=== PATIENT | female | born 1990 | race American Indian/Alaskan Native ===

== ENCOUNTER 2018-09-28 20:36 | Outpatient (CLI) | payer MEDICAID ==
[2018-09-28 21:28] VITALS: BP 102/56
--- NOTE | 2018-09-28 22:44 | Ultrasound Report ---
PROCEDURE: US OB FOLLOW UP, US OB BPP WO NON-STRESS TECHNIQUE: Obstetrical sonographic imaging was performed HISTORY: decrease movement COMPARISONS: 02/11/2018 FINDINGS: Images demonstrate single live intrauterine gestation in cephalic presentation. Anterior placenta gra de 1. No previa. heart rate measures 143 bpm. Calculated ALIYA 12.1 cm. estimated gestational age as follows: Biparietal diameter is 38 weeks 0 days Head circumference 38 weeks 4 days Abdominal circumference 38 weeks 1 day Femur length 30 weeks 2 days Average sonographic gestational age is 38 weeks 2 days with estimated due date of 10/10/2018. HC/AC 0.9 Cephalic index 79.9 Estimated weight 3442 g. 2 points were awarded for movement, tone, ALIYA, breathing movements, and calculated ALIYA 4 8/8 biophysical profile. IMPRESSION: Biophysical profile score 8/8. Single live intrauterine gestation at 38 weeks 2 days with estimated due date 10/10/2018. Calculated ALIYA 12.1 cm. heart rate measures 143 bpm. Cephalic presentation. Anterior grade 1 placenta without previa. Estimated weight 3442 g.. This document is electronically signed by Celestina Chowdhury MD., Sep 28 2018 10:42:22 PM ET
--- NOTE | 2018-09-29 02:05 | Ultrasound Report ---
PROCEDURE: US OB VELOCIMETRY UMBILCAL ART HISTORY: decels in fhr FINDINGS: Doppler ultrasound of the umbilical cords was performed. S/D ratio was 2.14 which is within normal limits for gestational age of approximately 38 weeks.. Resistive index was 0.53 which is also within normal limits for gestational age. IMPRESSION: Unremarkable cord Doppler ultrasound This document is electronically signed by Toby Valenzuela MD., Sep 29 2018 02:03:13 AM ET
== END 2018-09-29 02:15 | disposition home or self-care (01) ==
LOC: TRG 20:36
PROVIDERS: ATTEND Obstetrics & Gynecology
DX: O47.03 False labor before 37 completed weeks of gestation, third trimester (principal); Z3A.37 37 weeks gestation of pregnancy
CPT/HCPCS: 59025; 76816; 76819; 76820

== ENCOUNTER 2018-10-04 03:43 | Inpatient (IN) | payer MEDICAID ==
[2018-10-04] MEDS ORDERED: XYLOCAINE 2% INFILTRATI ONE (07:03)
[2018-10-04] MEDS ORDERED: BRETHINE IVP PRN (07:03)
[2018-10-04] MEDS ORDERED: BRETHINE SUB-Q PRN (07:03)
[2018-10-04] MEDS: SUBLIMAZE IV PRN ×4 (07:52→22:16)
[2018-10-04] MEDS: LACTATED RINGERS 1,000 ML IV SCH ×4 (07:57→23:37)
[2018-10-04] MEDS ORDERED: PITOCin/NS 20 UNIT/1000ML DRIP 20 UNITS/1,000 ML BAG IV SCH (08:00)
[2018-10-04] MEDS ORDERED: PITOCin/NS 30 UNIT/500ML 30 UNITS/500 ML BAG IV SCH ×2 (08:00)
[2018-10-04 08:06] LABS: Hematocrit 31.4 % (30.3-42.9); Hemoglobin 10.7 gm/dl (10.1-14.3); Mean Corpuscular HGB Conc 34 % (30-34); Mean Corpuscular Volume 86 fl (79-97); Platelet Count 251 K/mm3 (140-440); Red Blood Count 3.66 M/mm3 (3.65-5.03); Red Cell Distribution Width 14.8 % (13.2-15.2)
[2018-10-04] MEDS ORDERED: ZOFRAN IV PRN (13:30)
--- NOTE | 2018-10-04 20:34 | History and Physical Report ---
History of Present Illness Date of examination: 10/04/18 Date of admission: 10/04/18 09:34 Chief complaint: contractions History of present illness: This is a 28 yo at 39+3 weeks here for contractions. Initially noted to be 1cm commenced to walking and changed cervix to 3cm and ruddy q3min. Past History Past Medical History: no pertinent history Past Surgical History: no surgical history [employer] History: trichomonas Family/Genetic History: none Social history: no significant social history, single. denies: smoking, alcohol abuse, prescription drug abuse - Obstetrical History Expected Date of Delivery: 10/22/18 Actual Gestation: 37 Week(s) 3 Day(s) : 3 Para: 2 Hx # Term Pregnancies: 2 Number of Pregnancies: 0 Spontaneous Abortions: 0 Induced : 0 Number of Living Children: 2 Medications and Allergies Allergies Allergy/AdvReac Type Severity Reaction Status Date / Time No Known Allergies Allergy Verified 10/04/18 04:07 Home Medications Medication Instructions Recorded Confirmed Last Taken Type No Known Home Medications [No 10/04/18 10/04/18 Unknown History Reported Home Medications] Active Meds: Active Medications Ephedrine Sulfate (Ephedrine Sulfate) 10 mg IV Q2M PRN PRN Reason: Hypotension Fentanyl (Sublimaze) 100 mcg IV Q2H PRN PRN Reason: Labor Pain Last Admin: 10/04/18 15:14 Dose: 100 mcg Documented by: Oxytocin/Sodium Chloride (Pitocin/Ns 20 Unit/1000ml Drip) 20 units in 1,000 mls @ 125 mls/hr IV DIRECT TANVI Oxytocin/Sodium Chloride (Pitocin/Ns 30 Unit/500ml) 30 units in 500 mls @ 1 mls/hr IV TITR TANVI; Protocol Last Titration: 10/04/18 14:51 Dose: 14 milliunits/min, 14 mls/hr Documented by: Oxytocin/Sodium Chloride (Pitocin/Ns 30 Unit/500ml) 30 units in 500 mls @ 2 mls/hr IV TITR TANVI; Protocol Lactated Ringer's (Lactated Ringers) 1,000 mls @ 125 mls/hr IV DIRECT TANVI Last Admin: 10/04/18 13:40 Dose: 125 mls/hr Documented by: Mineral Oil (Mineral Oil) 30 ml PO QHS PRN PRN Reason: Constipation Ondansetron HCl (Zofran) 4 mg IV Q4H PRN PRN Reason: Nausea And Vomiting Last Admin: 10/04/18 15:15 Dose: 4 mg Documented by: Terbutaline Sulfate (Brethine) 0.25 mg SUB-Q ONCE PRN PRN Reason: Hyperstimulation/Hypertonicity Terbutaline Sulfate (Brethine) 0.25 mg IVP ONCE PRN PRN Reason: Hyperstimulation/Hypertonicity Review of Systems All systems: negative Genitourinary: leakage of fluid, contractions - Vital Signs Vital signs: Vital Signs Pulse BP 109 H 101/53 10/04/18 03:59 10/04/18 03:59 Temp Pulse Resp BP Pulse Ox 98.4 F 82 20 114/54 98 10/04/18 16:48 10/04/18 20:26 10/04/18 16:48 10/04/18 20:15 10/04/18 20:26 - Physical Exam Breasts: Positive: normal Cardiovascular: Regular rate, Normal S1 Lungs: Positive: Clear to auscultation, Normal air movement Abdomen: Positive: normal appearance, soft, normal bowel sounds. Negative: distention, tenderness, guarding Genitourinary (Female): Positive: normal external genitalia, normal perenium Vagina: Positive: normal moisture Uterus: Positive: normal size, normal contour Anus/Rectum: Positive: normal perianal skin, heme negative Extremities: Positive: normal Deep Tendon Reflex Grade: Normal +2 - Obstetrical FHR: category 1 Cervical Dilatation: 3 Cervical Effacement Percentage: 50 station: -3 Uterine Contraction Pattern: Regular Uterine Tone Measurement Phase: Contraction Uterine Contraction Intensity: Moderate Results Result Diagrams: 10/04/18 07:35 All other labs normal. Assessment and Plan A/P IUP 37+3 weeks GBS neg Latent labor with prom ( patient reported leaking while walking) IVF, labs continuos monitor Pitocin for augmentation expect vaginal delivery
[2018-10-04] MEDS ORDERED: MINERAL OIL PO PRN (22:00)
[2018-10-04] MEDS ORDERED: MARCAINE 0.25% INFILTRATI ONE (22:39)
[2018-10-04] MEDS ORDERED: NARCAN 2 MG/2 ML IV PRN (22:59)
--- NOTE | 2018-10-04 22:59 | Anesthesia Consultation ---
Anesthesia Consult and Med Hx Date of service: 10/04/18 - Airway Anesthetic Teeth Evaluation: Good ROM Head & Neck: Adequate Mental/Hyoid Distance: Adequate Mallampati Class: Class II Intubation Access Assessment: Good - Pulmonary Exam CTA: Yes - Cardiac Exam Cardiac Exam: RRR - Pre-Operative Health Status ASA Pre-Surgery Classification: ASA2 Proposed Anesthetic Plan: Epidural - Pulmonary Hx Asthma: No COPD: No Hx Pneumonia: No - Cardiovascular System Hx Hypertension: No - Central Nervous System Hx Seizures: Yes (migraines this ) Hx Psychiatric Problems: No - Endocrine Hx Renal Disease: No Hx End Stage Renal Disease: No Hx Hypothyroidism: No Hx Hyperthyroidism: No - Hematic Hx Anemia: No Hx Sickle Cell Disease: No - Other Systems Hx Alcohol Use: No
[2018-10-04] MEDS ORDERED: fentaNYL-BUPIV 2 MCG/ML-0.125% 200 MCG/100 ML BAG EPIDURAL SCH (23:00)
--- NOTE | 2018-10-05 04:05 | Procedure Note ---
OB Delivery Note - Delivery Date of Delivery: 10/05/18 Surgeon: DUSTIN CACERES Estimated blood loss: other (400cc) - Vaginal Delivery presentation: vertex Delivery position: OA Delivery induction: none Delivery augmentation: pitocin Delivery monitor: external FHT, external uterine Route of delivery: Delivery placenta: spontaneous Delivery cord: 3 umbilical vessels Episiotomy: none Delivery laceration: none Anesthesia: none Delivery comments: Patient was noted to be c/c/+1 commenced to pushing a pushed a viable male at 337a. The head was delivered and suction naso and oropharynx. The shoulders delivered easily. The cord was clamped and cut and placed baby on chest. The placenta delivered at 344a intact with 3 vessel cord. EBL 400 cc. Excellent hemostasis noted. Apgars 8 and 9. Weight 8 pounds 2.5oz - Infant A at 1 minute: 8 at 5 minutes: 9 Infant Gender: Male
[2018-10-05] MEDS ORDERED: IBUPROFEN PO PRN (07:30)
[2018-10-05] MEDS ORDERED: BENADRYL PO PRN (07:53)
[2018-10-05] MEDS ORDERED: MILK OF MAGNESIA PO PRN (07:53)
[2018-10-05] MEDS ORDERED: ZOFRAN IV PRN (07:53)
[2018-10-05] MEDS ORDERED: TUCKS PAD TP PRN (07:53)
[2018-10-05] MEDS ORDERED: LANSINOH TP PRN (07:53)
[2018-10-05] MEDS ORDERED: PHENERGAN PR PRN (07:53)
[2018-10-05] MEDS ORDERED: TYLENOL PO PRN (07:53)
[2018-10-05] MEDS ORDERED: PHENERGAN PO PRN (07:53)
[2018-10-05] MEDS ORDERED: DULCOLAX PR PRN (07:53)
[2018-10-05] MEDS: IBUPROFEN PO SCH ×3 (08:00→19:55)
[2018-10-05] MEDS ORDERED: SODIUM CHLORIDE FLUSH SYRINGE 10 ML IV NR (08:00)
[2018-10-05] MEDS: PERCOCET 5/325 PO PRN ×4 (08:17→23:52)
[2018-10-05 18:22] LABS: Hematocrit 28.4 % (30.3-42.9); Hemoglobin 9.3 gm/dl (10.1-14.3)
[2018-10-06] MEDS: IBUPROFEN PO SCH ×3 (02:25→14:38)
[2018-10-06] MEDS: PERCOCET 5/325 PO PRN ×3 (03:45→14:38)
--- NOTE | 2018-10-06 07:50 | Progress Note ---
Assessment and Plan A: PPD#1 s/p ; Asymptomatic anemia P: Continue routine care. Discharge later today. Subjective - Subjective Date of service: 10/06/18 Principal diagnosis: s/p at term Interval history: Pt c/o cramping but otherwise is well. Patient reports: appetite normal, voiding normally, pain well controlled, ambulating normally : doing well Objective - Vital Signs Latest vital signs: Vital Signs Temp Pulse Resp BP BP Pulse Ox 10/06/18 00:18 97.9 F 66 18 91/58 100 10/05/18 16:32 98.1 F 87 18 90/53 100 10/05/18 11:37 98.2 F 73 18 101/57 100 10/05/18 07:59 98.4 F 63 18 106/65 99 Intake and Output 10/05/18 10/06/18 10/06/18 22:59 06:59 14:59 Intake Total 360 360 Balance 360 360 Intake: Oral 360 Intake, Free Water 360 Other: Total, Intake Amount 360 # Voids Void 1 - Exam Breasts: Present: deferred Cardiovascular: Present: Regular rate Lungs: Present: Clear to auscultation Abdomen: Present: soft Uterus: Present: fundal height at umbilicus Extremities: Present: edema (trace) - Labs Labs: Abnormal lab results 10/05/18 Range/Units 18:10 Hgb 9.3 L (10.1-14.3) gm/dl Hct 28.4 L (30.3-42.9) %
--- NOTE | 2018-10-06 07:53 | Discharge Summary ---
Providers - Providers Date of Admission: 10/04/18 09:34 Date of discharge: 10/06/18 Attending physician: DUSTIN LUONG MD Primary care physician: DUSTIN LUONG MD Hospitalization Reason for admission: active labor Delivery: Procedure details: Please see delivery note. Episiotomy: none Laceration: none Other procedures: none complications: none Discharge diagnosis: IUP at term delivered [place] baby: male Hospital course: Pt was admitted in labor and ultimately delivered via spontaneous vaginal delivery which she tolerated well. Her course has been uncomplicated. She met discharge criteria on PPD#1. She will follow up in [address] Luong. Condition at discharge: Stable Disposition: - TO HOME OR SELFCARE - Discharge Diagnoses (1) Obesity Status: Acute Qualifiers: Obesity type: unspecified obesity type Obesity classification: adult class 2 (BMI 35 - 39.9) Serious obesity comorbidity presence: unspecified whether serious comorbidity present Body mass index: BMI 36.0-36.9 Qualified Code(s): E66.9 - Obesity, unspecified; Z68.36 - Body mass index (BMI) 36.0-36.9, adult (2) Anemia Status: Acute (3) Active labor Status: Acute Plan - Discharge Medications Prescriptions: Ibuprofen [Motrin] 600 mg PO Q8H PRN #30 tablet PRN Reason: Pain oxyCODONE /ACETAMINOPHEN [Percocet 5/325] 1 tab PO Q6HR PRN #10 PRN Reason: Pain - Provider Discharge Summary Activity: routine, no sex for 6 weeks, no heavy lifting 4 weeks, no strenuous exercise Diet: routine Instructions: routine Additional instructions: [] Smoking cessation referral if applicable(refer to patient education folder for contact #) [] Refer to [facility] Booklet Call your doctor immediately for: * Fever > 100.5 * Heavy vaginal bleeding ( >1 pad per hour) * Severe persistent headache * Shortness of breath * Reddened, hot, painful area to leg or breast * Drainage or odor from incision. * Keep incision clean and dry at all times and follow doctor's instructions regarding bathing/showering - Follow up plan Follow up: DUSTIN LUONG MD [Primary Care Provider] - 11/06/18 (Please call to schedule follow up appt Please schedule your son's circumcision before he is [age] year old. )
[2018-10-06 09:17] VITALS: BP 101/66
== END 2018-10-06 15:45 | disposition home or self-care (01) | DRG 775 ==
LOC: TRG 03:43 → LD 09:34 → OB 10-05 06:14
PROVIDERS: ADMIT Obstetrics & Gynecology; ATTEND Obstetrics & Gynecology
PROC: 10E0XZZ Delivery of Products of Conception, External Approach (ICD-10-PCS; principal; 2018-10-05)
DX: O99.354 Diseases of the nervous system complicating childbirth (principal); G43.909 Migraine, unspecified, not intractable, without status migrainosus; O99.214 Obesity complicating childbirth; E66.9 Obesity, unspecified; O99.02 Anemia complicating childbirth; D64.9 Anemia, unspecified; O42.92 Full-term premature rupture of membranes, unspecified as to length of time between rupture and onset of labor; Z3A.37 37 weeks gestation of pregnancy; Z37.0 Single live birth
CPT/HCPCS: 36415; 85014; 85018; 85027; 86592; 86850; 86900; 86901; G0378; J2405; J2590; J3010; J7120

== ENCOUNTER 2019-02-27 16:46 | Emergency (ER) | payer MEDICAID, OTHER ==
--- NOTE | 2019-02-27 16:56 | Emergency Department Report ---
Blank Doc - Documentation Documentation: 28-year-old female that presents with right wrist pain s/p fall. Deneis any o ther injuries or trauma. This initial assessment/diagnostic orders/clinical plan/treatment(s) is/are subject to change based on patient's health status, clinical progression and re- assessment by fellow clinical providers in the ED. Further treatment and workup at subsequent clinical providers discretion. Patient/guardians urged not to elope from the ED as their condition may be serious if not clinically assessed and managed. Initial orders include: 1- Patient sent to [facility] for further evaluation and treatment 2- xrays
--- NOTE | 2019-02-27 17:34 | XRay Report ---
RIGHT WRIST 3 VIEWS INDICATION / CLINICAL INFORMATION: pain s/p fall COMPARISON: None available. FINDINGS: BONES / JOINT(S): No acute fracture or subluxation. No significant arthritis. SOFT TISSUES: No significant abnormality. ADDITIONAL FINDINGS: None. Signer Name: Jun Lowery MD Signed: 02/27/2019 5:30 PM Workstation Name: [id number]
--- NOTE | 2019-02-27 20:23 | Emergency Department Report ---
ED Upper Extremity Inj HPI - General Chief Complaint: Extremity Injury, Upper Stated Complaint: RT WRIST INJURY Time Seen by Provider: 02/27/19 16:55 Source: patient Mode of arrival: Ambulatory Limitations: No Limitations - History of Present Illness Initial Comments: 28-year-old female presents with department complaining of pain to the right wrist she sustained after a slip and fall landing on her right side and in unknown position. Pain is dull and throbbing and worse with various range of motion and palpation. She reports no numbness or tingling. He has had a prior injury to the wrist involving soft tissue requiring physical therapy 2 to heal. MD Complaint: Injury to:: left, right, wrist -: Gradual Other Extremity Injury: Wrist: Right Other Injuries: none Handedness: right Place: work Context: fall Associated Symptoms: denies other symptoms - Related Data Previous Rx's Medication Instructions Recorded Last Taken Type Ibuprofen [Motrin] 600 mg PO Q8H PRN #30 tablet 10/05/18 Unknown Rx oxyCODONE /ACETAMINOPHEN [Percocet 1 tab PO Q6HR PRN #10 10/05/18 Unknown Rx 5/325] Ferrous Sulfate [Feosol 325 MG tab] 325 mg PO BID #60 tablet 10/06/18 Unknown Rx Ibuprofen [Motrin] 800 mg PO Q8HR PRN #30 tablet 10/06/18 Unknown Rx Allergies Allergy/AdvReac Type Severity Reaction Status Date / Time No Known Allergies Allergy Verified 02/27/19 16:48 ED Review of Systems ROS: Stated complaint: RT WRIST INJURY Other details as noted in HPI Comment: All other systems reviewed and negative ED Past Medical Hx - Past Medical History Previous Medical History?: Yes Hx Hypertension: No Hx Congestive Heart Failure: No Hx Diabetes: No Hx Deep Vein Thrombosis: No Hx Renal Disease: No Hx Sickle Cell Disease: No Hx Headaches / Migraines: Yes Hx Seizures: Yes (migraines this ) Hx Asthma: No Hx COPD: No Hx HIV: No Additional medical history: vaginal delivery x 2 - Surgical History Past Surgical History?: No - Family History Family history: no significant - Social History Smoking Status: Never Smoker - Medications Home Medications: Home Medications Medication Instructions Recorded Confirmed Last Taken Type Ibuprofen [Motrin] 600 mg PO Q8H PRN #30 tablet 10/05/18 Unknown Rx oxyCODONE /ACETAMINOPHEN [Percocet 1 tab PO Q6HR PRN #10 10/05/18 Unknown Rx 5/325] Ferrous Sulfate [Feosol 325 MG tab] 325 mg PO BID #60 tablet 10/06/18 Unknown Rx Ibuprofen [Motrin] 800 mg PO Q8HR PRN #30 tablet 10/06/18 Unknown Rx ED Physical Exam - General Limitations: No Limitations General appearance: alert, in no apparent distress - Head Head exam: Present: atraumatic, normocephalic - Eye Eye exam: Present: normal appearance - ENT ENT exam: Present: mucous membranes moist - Neck Neck exam: Present: normal inspection - Respiratory Respiratory exam: Present: normal lung sounds bilaterally. Absent: respiratory distress - Cardiovascular Cardiovascular Exam: Present: regular rate, normal rhythm. Absent: systolic murmur, diastolic murmur, rubs, gallop - GI/Abdominal GI/Abdominal exam: Present: soft, normal bowel sounds - Extremities Exam Extremities exam: Present: normal inspection, tenderness (right wrist with mild swelling. Pulses 2+ capillary refills are brisk. Pain with full supination and pronation. Pain with flexion noted as well. No edema or high poor feeding or pain. No pain to the elbow or shoulder.) - Back Exam Back exam: Present: normal inspection - Neurological Exam Neurological exam: Present: alert, oriented X3 - Psychiatric Psychiatric exam: Present: normal affect, normal mood - Skin Skin exam: Present: warm, dry, intact, normal color. Absent: rash ED Course Vital Signs 02/27/19 16:53 Temperature 98.4 F Pulse Rate 83 Respiratory 20 Rate Blood Pressure 98/57 O2 Sat by Pulse 100 Oximetry ED Medical Decision Making - Radiology Data Radiology results: report reviewed (x-rays of the right wrist shows no fractures or dislocation) - Medical Decision Making 28-year-old female status post fall onto the right wrist causing pain she denies any pelvic symptoms. We discussed the Velcro splint and ice and Tylenol as needed. Critical care attestation.: If time is entered above; I have spent that time in minutes in the direct care of this critically ill patient, excluding procedure time. ED Disposition Clinical Impression: Wrist pain Disposition: DC-01 TO HOME OR SELFCARE Is pt being admited?: No Does the pt Need Aspirin: No Condition: Stable Instructions: Wrist Injury (ED), Ice Pack Application (ED) Referrals: PRIMARY CARE, [Primary Care Provider] - 3-5 Days ARISTEO DAMON MD [Staff Physician] - 3-5 Days
[2019-02-27 20:49] VITALS: BP 105/60
== END 2019-02-27 20:49 | disposition home or self-care (01) ==
LOC: ED 16:46
DX: O9A.219 Injury, poisoning and certain other consequences of external causes complicating pregnancy, unspecified trimester (principal); M25.531 Pain in right wrist; O99.350 Diseases of the nervous system complicating pregnancy, unspecified trimester; G43.909 Migraine, unspecified, not intractable, without status migrainosus; Z79.899 Other long term (current) drug therapy; Z3A.00 Weeks of gestation of pregnancy not specified

== ENCOUNTER 2020-04-24 00:21 | Emergency (ER) | payer SELFPAY | END 2020-04-24 02:00 | disposition left against medical advice (07) | LOC: ED 00:21 | DX: M79.641 Pain in right hand (principal); Z53.21 Procedure and treatment not carried out due to patient leaving prior to being seen by health care provider ==